=== PATIENT | female | born 1990 | race Caucasian/White ===

== ENCOUNTER 2020-12-20 18:19 | Emergency (ER) | payer OTHER, SELFPAY ==
[2020-12-20 18:25] VITALS: BP 117/60; PULSE 79; RESP 17; TEMP 36.2; O2SAT 99; BMI 19.5
[2020-12-20] MEDS: ONDANSETRON 4 MG ODT PO (18:45)
[2020-12-20] MEDS: MECLIZINE HCL 12.5 MG TABLET 50 MG PO (18:45)
--- NOTE | 2020-12-20 19:17 | ED_ITS ---
HPI - Dizziness General Chief Complaint: Dizziness Stated Complaint: head pain, vomiting Time Seen by Provider: 12/20/20 19:09 Source: patient Mode of arrival: Wheelchair Limitations: no limitations History of Present Illness HPI Narrative: 30F nonsmoker with a history of hearing loss in her right ear presents with significant other and a chief complaint of profound dizziness that started earlier today. She states any time she moves her head things began spinning significantly and she becomes nauseated at times vomits. She denies any new medications or diet. She denies any trauma or injury. She denies any fever, chills nor neck pain. She has had no chest pain, palpitations or shortness of breath. She states this happens every time she moves, seems to settle down after about 1-2 minutes. Patient denies any other neurologic symptoms such as blurred vision, trouble speech nor extremity numbness, tingling or weakness. She has had no new dysuria, frequency or urgency Related Data Previous Rx's Medication Instructions Recorded meclizine 25 mg tablet 25 mg PO BID-TID PRN #14 tab 12/20/20 ondansetron 4 mg disintegrating 4 mg PO TID-QID PRN #10 tab 12/20/20 tablet Allergies Allergy/AdvReac Type Severity Reaction Status Date / Time No Known Drug Allergies Allergy Verified 12/20/20 18:30 Review of Systems Review of Systems Narrative: GENERAL: Denies chills, fatigue, malaise, fever, sweats. HEENT: Denies sinus pain, ear pain, sore throat, difficulty swallowing, dizziness. RESPIRATORY: Denies dyspnea, cough, wheezing, hemoptysis, sputum. CARDIOVASCULAR: Denies chest pain, palpitations, orthopnea, edema, GASTROINTESTINAL: See HP : Denies dysuria, frequency, incontinence, hematuria, urinary retention. MUSCULOSKELETAL: denies weakness, joint pain, or bony pain SKIN: Denies rash, skin lesions, or other NEUROLOGIC: Denies weakness, headache, numbness, change in speech, confusion, seizures, incoordination. PSYCHIATRIC: No concerning psychosocial issues. 12 point review of systems is negative except for those stated above Patient History Social History Smoking Status: Never smoker Smoking Status: Never smoker alcohol intake frequency: 0-2 drinks per day Substance Use Type: does not use Exam Narrative Exam Narrative: GENERAL: [30 year old patient appears stated age. Well-developed patient, in mild distress. Sitting upright, resistant to move her head and ne ck, holding an emesis bag HEAD: Atraumatic. Normocephalic. EYES: Pupils equal round and reactive. Extraocular motions intact. No scleral icterus. No injection or drainage. ENT: Nose without bleeding, purulent drainage. Throat without erythema, tonsillar hypertrophy or exudate. Airway patent. NECK: Trachea midline. Non tender CARDIOVASCULAR: Regular rate and rhythm without murmurs, gallops, or rubs. RESPIRATORY: Clear to auscultation. Breath sounds equal bilaterally. No wheezes, rales, or rhonchi. GASTROINTESTINAL: Abdomen soft, non-tender, nondistended. EXTREMITIES: No edema or joint tenderness. BACK: Nontender without deformity or crepitance. No flank tenderness. NEURO: AOx3. SKIN: No rash or erythema of visible areas Initial Vital Signs Initial Vital Signs: Vital Signs Temperature 97.1 F L 12/20/20 18:25 Pulse Rate 79 12/20/20 18:25 Respiratory Rate 17 12/20/20 18:25 Blood Pressure 117/60 12/20/20 18:25 Pulse Oximetry 99 12/20/20 18:25 Course Course Course Narrative: GerHallpichip notes horizontal nystagmus with fast which to the left when patient lays on her left side. The nystagmus and her symptoms resolve after about 1 minute. Cassidy's maneuver was completed, however after last maneuver patient began vomiting. Orders Ordered: ED Orders 12/20/20 20:35 Basic Metabolic Panel Stat Complete Blood Count AUTO DIFF Stat 12/20/20 22:20 Urine Microscopic Stat Discontinued Medications Lactated Ringer's (Lactated Ringers) 1,000 mls @ 1,000 mls/hr IV BOLUS ONE Stop: 12/20/20 21:11 Last Infusion: 12/20/20 23:22 Dose: 0 mls/hr Documented by: Admin: 12/20/20 20:39 Dose: 1,000 mls/hr Documented by: CTRGermaineHANDER Lorazepam (Lorazepam 2 Mg/Ml Inj) 1 mg IV NOW ONE Stop: 12/20/20 20:13 Last Admin: 12/20/20 20:37 Dose: 1 mg Documented by: CTRGermaineHANDBRIANNA Meclizine HCl (Meclizine Hcl 12.5 Mg Tablet) 50 mg PO NOW ONE Stop: 12/20/20 18:41 Last Admin: 12/20/20 18:45 Dose: 50 mg Documented by: FADY Ondansetron HCl (Ondansetron 4 Mg Odt) 4 mg PO NOW ONE Stop: 12/20/20 18:41 Last Admin: 12/20/20 18:45 Dose: 4 mg Documented by: FADY Ondansetron HCl (Ondansetron 4 Mg Odt Prepack) 1 bottle MISC SEEINSTR ONE Stop: 12/20/20 23:15 Last Admin: 12/20/20 23:17 Dose: 1 bottle Documented by: HAZEL Pantoprazole Sodium (Pantoprazole 40 Mg Vial) 20 mg IV NOW ONE Stop: 12/20/20 20:14 Last Admin: 12/20/20 20:38 Dose: 20 mg Documented by: RC Reevaluation(s) Reevaluation #1: Patient observed for quite some time, dizziness has improved and vomiting is gone the patient is still nauseated. Vital Signs Vital signs: Vital Signs - 8 hr 12/20/20 23:22 Pulse Rate 89 Respiratory Rate 16 Blood Pressure 111/66 Pulse Oximetry 98 MDM - Dizziness Lab Data Result diagrams: 12/20/20 20:35 12/20/20 20:35 Labs: Lab Results 12/20/20 12/20/20 12/20/20 Range/Units 20:35 20:35 22:20 WBC 8.4 (4.5-11.0) X10^3/uL RBC 4.60 (4.0-5.2) X10^6/uL Hgb 13.1 (12.0-16.0) g/dL Hct 39.6 (36-46) % MCV 86.2 (80-100) fL MCH 28.5 (26-34) PG MCHC 33.1 (30-36) % RDW 13.9 (11.6-14.8) % Plt Count 169 (150-400) X10^3/uL Neut % (Auto) 78.7 H (50-75) % Lymph % (Auto) 15.7 L (25-40) % [place] % (Auto) 4.0 (3-14) % Eos % (Auto) 0.5 L (2-4) % Baso % (Auto) 1.1 (0-2) % Neut # (Auto) 6600 (2920-7519) /uL Lymph # (Auto) 1300 (7401-9938) /uL [place] # (Auto) 300 (0-900) /uL Eos # (Auto) 0 (0-450) /uL Baso # (Auto) 100 (0-100) /uL Sodium 140 (137-145) mmol/L Potassium 4.0 (3.4-5.1) mmol/L Chloride 104 (98-107) mmol/L Carbon Dioxide 27 (22-32) mmol/L BUN 10 (7-17) mg/dL Creatinine 0.67 (0.52-1.04) mg/dL Estimated GFR > 60.0 (>60) mL/min BUN/Creatinine Ratio 14.9 (6-22) Glucose 122 H (70-100) mg/dL Calcium 9.5 (8.4-10.2) mg/dL Urine RBC 0-1/hpf (0-5/HPF) Urine WBC 5-10/hpf H (0-5/HPF) Ur Squamous Epith Cells >30 /hpf H (0-5/HPF) Calcium Oxalate Crystal Moderate H Urine Bacteria Many (>30) H (None) Urine Mucus 3+ H (Negative) Ur Culture Indicated? Cult not indicated Point of Care Testing Test Results Negative Urine Dip Bedside Urine Glucose Negative Bedside Urine Bilirubin - Negative Bedside Urine Ketone + 15 Urine Specific [place] 1.030 Bedside Urine Occult Blood - Negative Bedside Urine pH 6 Bedside Urine Protein +/- 15 Bedside Urine Urobilinogen - Negative Bedside Urine Nitrite - Negative Bedside Urine Leukocytes + 70 Esterase MDM Narrative Medical decision making narrative: Patient presents with severe, sudden onset, reproducible and fatigable dizziness. She has fast which nystagmus to the left and we have performed the Apley's maneuver. She is doing better but still having some nausea at time of discharge. Other diagnoses considered include labyrinthitis, electrolyte abnormality, stroke and other but thought unlikely given the rather classic presentation of her symptoms. Patient does have some leukocytes in her urine but states she has no dysuria, frequency, urgency or any signs consistent with urinary tract infection. For this reason we elected to hold off on antibiotics and await cultures. Patient given extensive return precautions and questions have been answered to her apparent satisfaction Discharge Plan Departure Patient Disposition: Home Clinical Impression: Benign paroxysmal positional vertigo Qualifiers: Laterality: left Qualified Code(s): H81.12 - Benign paroxysmal vertigo, left ear Instructions: DI for Vertigo Activity Restrictions/Additional Instructions: *You have been diagnosed with [Benign paroxysmal positional vertigo] *What to do: *Please continue to take your regular medications as directed. [x] New medication prescriptions sent to your pharmacy: [ [facility]] [ ] New medication written as a paper prescription [ ] No new medications given *Please follow up with your primary care provider in 2-3 days, call for an appointment. Let them know you were seen in the Emergency Department and that we ask that you be seen in follow up. We will electronically transmit a record of today's note if your PCP is in our system *If you do not have a primary care provider please contact the [facility] Resource line at [phone]. They will ask some questions about your medical history and help get you set up with a doctor in the community. *Return to Emergency Department if you should have any new, worsening or concerning symptoms, such as [fever greater than 101 F, shaking chills, worsening pain, persistent vomiting or other bothersome symptoms] Prescriptions: New meclizine 25 mg tablet 25 mg PO BID-TID PRN (Reason: dizziness) Qty: 14 RF: 0 ondansetron 4 mg tablet,disintegrating 4 mg PO TID-QID PRN (Reason: nausea and vomiting) Qty: 10 RF: 0
[2020-12-20] MEDS: LORazepam 2 MG/ML INJ 1 MG IV (20:37)
[2020-12-20] MEDS: PANTOPRAZOLE 40 MG VIAL 20 MG IV (20:38)
[2020-12-20] MEDS: LACTATED RINGERS 1,000 ML 1000 ML IV (20:39)
[2020-12-20 20:42] LABS: Add Manual Diff / Slide Review NO; Basophils Absolute Auto 100 /uL (0-100); Basophils Percent Auto 1.1 % (0-2); Eosinophils Absolute Auto 0 /uL (0-450); Eosinophils Percent Auto 0.5 % (2-4); Hematocrit 39.6 % (36-46); Hemoglobin 13.1 g/dL (12.0-16.0); Lymphocytes Absolute Auto 1300 /uL (1100-4500); Lymphocytes Percent Auto 15.7 % (25-40); Mean Corpuscular HGB Conc 33.1 % (30-36); Mean Corpuscular Hemoglobin 28.5 PG (26-34); Mean Corpuscular Volume 86.2 fL (80-100); Monocytes Absolute Auto 300 /uL (0-900); Neutrophils Absolute Auto 6600 /uL (1500-7000); Neutrophils Percent Auto 78.7 % (50-75); Platelet Count 169 X10^3/uL (150-400); Red Cell Distribution Width 13.9 % (11.6-14.8); White Blood Cell Count 8.4 X10^3/uL (4.5-11.0)
[2020-12-20 20:52] LABS: BUN Creatinine Ratio 14.9 (6-22); Blood Urea Nitrogen 10 mg/dL (7-17); Calcium 9.5 mg/dL (8.4-10.2); Carbon Dioxide 27 mmol/L (22-32); Chloride 104 mmol/L (98-107); Estimated Glomerular Filt Rate > 60.0 mL/min (>60); Glucose 122 mg/dL (70-100); HEMOLYSIS < 15 (0-50); Sodium 140 mmol/L (137-145)
[2020-12-20] MEDS: ONDANSETRON 4 MG ODT PREPACK 1 BOTTLE MISC (23:17)
[2020-12-20 23:22] VITALS: BP 111/66; PULSE 89; RESP 16; O2SAT 98
[2020-12-20 23:57] LABS: WBC Urine 5-10/HPF (0-5/HPF)
[2020-12-20 23:58] LABS: Bacteria Urine Many (>30); Calcium Oxalate Crystals Urine Moderate; RBC Urine 0-1/HPF (0-5/HPF)
[2020-12-20 23:59] LABS: Culture Indicated Urine Cult Not Indicated; Mucus Urine 3+ (Negative); Squamous Epithelial Cell Urine >30 /HPF (0-5/HPF)
== END 2020-12-20 23:50 | disposition home or self-care (01) ==
PROVIDERS: Emergency Provider Emergency Medicine
DX: H81.12 Benign paroxysmal vertigo, left ear (principal); R11.0 Nausea
CPT/HCPCS: 80048; 81003; 81015; 81025; 85025; 96361; 96374; 96375; 99284; C9113; J2060